=== PATIENT | female | born 1975 | race Caucasian/White ===

== ENCOUNTER → 2017-01-06 | Outpatient (CLI) | payer OTHER ==
--- NOTE | 2017-01-06 16:21 | KCIC ---
PELVIS W/TV History: Right ovarian cyst Comparison: None. Findings: Multiple transabdominal sonographic images of the pelvis are submitted. Uterus measured 7.9 x 5.2 x 5.8 cm. Endometrium measured 0.5 cm. Neither ovary is demonstrated. Transvaginal ultrasound: Multiple transvaginal sonographic images of the pelvis are submitted. Endometrium measures 0.7 cm. Left ovary could not be visualized. Right ovary measured 2.9 x 1.4 x 2 cm with normal color flow. There is a hypoechoic lesion of the right ovary up to 2.1 x 1.4 x 1.1 cm. There is a small quantity of free fluid in the posterior cul-de-sac. There is focus of masslike echogenicity along the left aspect of the cervix on the order of 2.2 x 2.2 x 1.8 cm with internal vascularity. Impression: 1. There is a small right ovarian cyst up to 2.1 cm, small quantity of fluid in the pelvis. 2. Left ovary could not be visualized. Along the left aspect of the cervix, there is a focus of masslike echogenicity up to 2.2 cm in size. MRI characterization may be beneficial. Electronically signed by: Brant Dela Cruz MD (01/06/2017 4:17 PM) [id number]
--- NOTE | 2017-01-06 17:36 | RAD ---
DATE: 01/06/2017 EXAM: MAMMO BOOM SCREENING BILATERAL HISTORY: Routine screening. COMPARISON: Place mammogram from 2016. This study was interpreted with the benefit of Computerized Aided Detection (CAD). FINDINGS: Breast Density: SCATTERED The breast parenchyma shows scattered fibroglandular densities. Breast parenchyma level B. The skin and nipples show no abnormalities. No suspicious calcifications, spiculated mass or architectural distortion. IMPRESSION: No mammographic evidence of malignancy. Stable study compared to 2016. BI-RADS CATEGORY: 1 NEGATIVE RECOMMENDED FOLLOW-UP: 12M 12 MONTH FOLLOW-UP PQRS compliance statement: Patient information was entered into a reminder system with a target due date 01/06/2018 for the next mammogram. Mammography is a sensitive method for finding small breast cancers, but it does not detect them all and is not a substitute for careful clinical examination. A negative mammogram does not negate a clinically suspicious finding and should not result in delay in biopsying a clinically suspicious abnormality. "Our facility is accredited by the [employer] Mammography Program."
== END | disposition home or self-care (01) ==
LOC: KCIC US 14:09
PROVIDERS: ATTEND Obstetrics & Gynecology
DX: Z12.31 Encounter for screening mammogram for malignant neoplasm of breast (principal); N83.201 Unspecified ovarian cyst, right side
CPT/HCPCS: 76830; 76856; 77063; G0202; 77067

== ENCOUNTER → 2017-01-28 | Outpatient (CLI) | payer OTHER ==
[~2017-01-28] MED LIST: GADOBUTROL 7.5 MMOL/7.5 ML VIAL IV ONE; METF500T4 PO; NORG1TAB6 PO
--- NOTE | 2017-01-28 21:43 | KCIC ---
MRI pelvis with and without contrast dated 01/28/2017. Comparison made to pelvic ultrasound dated 01/06/2017. Clinical indication: Possible cervical mass seen on ultrasound. TECHNIQUE: Routine multiplanar multisequence MR imaging of pelvis performed with and without the administration of 6cc Gadavist. FINDINGS: Uterus is retroverted and measures 7.7 x 4.3 x 6.4 cm. No focal uterine mass. Endometrial complex is normal in thickness for age measuring approximately 3 mm. The junctional zone is within normal limits in thickness. Cervix is unremarkable. There is no evidence of cervical mass or abnormal enhancement. Right ovary measures 2.3 x 1.3 x 2.2 cm. There is a 1.9 cm simple appearing cyst at the right ovary. Left ovary measures 1.4 x 0.8 x 1.2 cm. No left adnexal mass. Trace amount of free pelvic fluid. Urinary bladder is nondistended. No pelvic adenopathy. Visualized osseous structures unremarkable. No abnormal enhancement. IMPRESSION: 1. No evidence of cervical mass. The finding on the recent ultrasound was likely artifactual. 2. Simple cyst or dominant follicle at the right ovary measuring 1.9 cm in size. 3. Trace amount of free pelvic fluid, nonspecific. Electronically signed by: Justin Pham MD (01/28/2017 9:39 PM) [facility]
== END | disposition home or self-care (01) ==
LOC: KCIC MRI 14:19
PROVIDERS: ATTEND Obstetrics & Gynecology
DX: N83.201 Unspecified ovarian cyst, right side (principal)
CPT/HCPCS: 72197; 82565; A9585